=== PATIENT | female | born 1970 | race Caucasian/White ===

== ENCOUNTER → 2024-01-07 09:32 | Outpatient (BNVA) | payer MEDICAID, SELFPAY | PROVIDERS: Visit Provider Nurse Practitioner Family | DX: L74.511 Primary focal hyperhidrosis, face (principal); L74.519 Primary focal hyperhidrosis, unspecified; L74.510 Primary focal hyperhidrosis, axilla; L57.8 Other skin changes due to chronic exposure to nonionizing radiation; D22.39 Melanocytic nevi of other parts of face; L81.4 Other melanin hyperpigmentation | CPT/HCPCS: 99204 ==

== ENCOUNTER 2024-02-05 20:00 | Outpatient (CLI) | payer MEDICAID, SELFPAY | END 2024-02-05 20:01 | disposition home or self-care (01) | LOC: SLEEP 02-06 01:33 | PROVIDERS: Visit Provider Family Medicine | DX: G47.33 Obstructive sleep apnea (adult) (pediatric) (principal) | CPT/HCPCS: 95811 ==

== ENCOUNTER → 2024-02-20 09:21 | Outpatient (BNVA) | payer MEDICAID, SELFPAY | PROVIDERS: Visit Provider Nurse Practitioner Family | DX: L74.511 Primary focal hyperhidrosis, face (principal); L74.519 Primary focal hyperhidrosis, unspecified; L74.510 Primary focal hyperhidrosis, axilla; L57.8 Other skin changes due to chronic exposure to nonionizing radiation; D22.39 Melanocytic nevi of other parts of face; L81.4 Other melanin hyperpigmentation | CPT/HCPCS: 99214 ==

== ENCOUNTER 2024-03-03 14:30 | Oncology outpatient (recurring) (ONCR) | payer MEDICAID, SELFPAY ==
[2024-03-03 14:35] VITALS: BP 150/84; PULSE 90; RESP 16; TEMP 36.7; O2SAT 99
[2024-03-03] MEDS: eptinezumab-jjmr 300 MG in sodium chloride 0.9% (100 ml) 100 ML 206 MG IV (14:55)
[2024-03-03 15:25] VITALS: BP 136/65; PULSE 90; RESP 16; TEMP 36.7; O2SAT 96
== END 2024-03-17 23:59 | disposition home or self-care (01) ==
PROVIDERS: PCP Family Medicine; Visit Provider Internal Medicine Medical Oncology
DX: Z79.899 Other long term (current) drug therapy (principal); G43.709 Chronic migraine without aura, not intractable, without status migrainosus; Z53.9 Procedure and treatment not carried out, unspecified reason
CPT/HCPCS: 96413; A4222; J3032

== ENCOUNTER 2024-03-19 19:18 | Emergency (ER) | payer MEDICAID, SELFPAY ==
[2024-03-19 19:21] VITALS: BP 150/94; PULSE 112; RESP 16; TEMP 36.8; O2SAT 99; BMI 30.7
--- NOTE | 2024-03-19 19:30 | ED_ITS ---
HPI - Headache General: Chief Complaint: Headache Stated Complaint: Migraine Time Seen by Provider: 03/19/24 19:22 Source: patient Mode of arrival: ambulatory Limitations: no limitations History of Present Illness: Patient is a 54-year-old female presenting to the emergency department with mother and hide for the past 2 weeks. States she receives injections of sumatriptan and also receives Vyepti, states he is also currently in the process of switching neurologist. She does note that she seems to get worsening migraines after Vyepti infusion, states that she has been having symptoms for 2 weeks which include sensitivity to light and sound and nausea. States that her headache feels identical to previous migraines, just that this 1 has lasted longer. No neurological symptoms reported, no chest pain, no shortness of breath, no other symptoms MD elicited complaint: headache and migraine Pertinent past history: migraines Onset (ago): week(s) (2) Onset description: gradually Location: diffuse Severity: severe Exacerbating factors: light and noise Associated symptoms: Reports nausea; Deny chest pain, fever(s), lightheadedness, rash or vomiting Related Data Allergies Allergy/AdvReac Type Severity Reaction Status Date / Time citalopram [From Celexa] Allergy Severe ALGY-Hives Verified 03/19/24 19:24 galcanezumab-gnlm Allergy Severe ADR-Depress Verified 03/19/24 19:24 [From Emgality Pen] ion Review of Systems General: Reports: 10 or more systems reviewed and unremarkable except in HPI and below Const: Denies: fever(s), chills or fatigue Eyes: Denies: change in vision ENMT: Denies: throat pain, ear or mastoid pain or nasal discharge Card: Denies: chest pain, palpitations, swelling of feet/ankles or lightheadedness Resp: Denies: dyspnea, productive cough or wheezing GI: Reports: nausea; Denies: abdominal pain, vomiting, diarrhea or constipation : Denies: flank pain, difficulty voiding, dysuria or urinary frequency Musc: Denies: neck pain, back pain or joint pain Skin/Breast: Denies: rash Neuro: Reports: headache(s) and other (Sensitivity to light/sound); Denies: numbness in extremities or weakness in extremities PFSH ED PFSH: Social History Smoking and tobacco/nicotine status: current every day tobacco/nicotine user Physical Exam Const: COMMON NORMALS: no acute distress, patient oriented x3 and no limitations GENERAL APPEARANCE: cooperative and well developed ORIENTATION/CONSCIOUSNESS: Yes awake, Yes oriented to person, Yes oriented to place and Yes oriented to time OTHER: Patient requesting dark/quiet environment in the emergency room HENMT: COMMON NORMALS: normocephalic, atraumatic and hearing grossly normal bilaterally HEAD & SCALP: normocephalic and atraumatic Eye: COMMON NORMALS: Equal, round and reactive pupils present, EOMs intact bilaterally and conjunctivae normal CONJUNCTIVA: Yes conjunctivae normal PUPIL: Yes Equal, round and reactive pupils present Neck/C-Spine: COMMON NORMALS: full ROM, supple and no JVD Resp: COMMON NORMALS: normal respiratory effort, No retractions, No use of accessory muscles and clear to auscultation bilaterally AUSCULTATION: clear to auscultation bilaterally Cardio: COMMON NORMALS: no JVD, regular rate, regular rhythm, No clicks present (Cardio), No murmurs present (Cardio) and No rub (Cardio) RATE: regular rate RHYTHM: regular rhythm Extremity: COMMON NORMALS: normal to inspection, full ROM and capillary refill normal Neuro: COMMON NORMALS: patient oriented x3, CN's II-XII intact bilaterally, moves all extremities, no focal motor deficits and no sensory deficits noted SENSORIUM/ORIENTATION: Yes oriented to person, Yes oriented to place and Yes oriented to time Psych: COMMON NORMALS: mental status grossly normal and Normal thought process present THOUGHT PROCESS: Normal thought process present Skin: COMMON NORMALS: no rashes or lesions noted GENERAL SKIN EXAM: no rashes or lesions noted Course Vital Signs: Vital signs: Vital Signs Temperature 98.2 F 03/19/24 19:21 Pulse Rate 99 03/19/24 20:01 Respiratory Rate 16 03/19/24 20:01 Blood Pressure 128/89 03/19/24 20:01 Pulse Oximetry 98 03/19/24 20:01 MDM - Headache Medical Decision Making Patient presented with 2 weeks of migraine headache, 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 She has infusions of Vyepti every 90 days, also has sumatriptan shots that she states she takes as needed. She was given migraine cocktail here, upon recheck states that she was feeling better and that she feels like the edge has been taken off. She will be discharged home and encouraged to follow-up with neurologist. Reasons to return discussed. She agrees with discharge home at this time. No radiology studies performed this visit Discharge Plan Discharge Patient Disposition: Home Clinical Impression: Migraine Condition: Stable Discharge Orders: Discharge ED (Routine); Ordered 03/19/24 Ordered By: Bar Peck Referrals: Da Perez [Primary Care Provider] - Discharge Diet: Usual diet Discharge Activity: Increase activity as tolerated Patient Instructions: Migraine Headache (ED) Activity Restrictions/Additional Instructions: Plenty of fluids. Continue injections and infusions for prophylactic migraine treatment. Follow-up with neurologist. Return with any new or worsening. Coding Level of Care Code ED Dietetic Technician for Kami Snowden
[2024-03-19] MEDS: sodium chloride 0.9% 1,000 ML 999 ML IV (19:56)
[2024-03-19] MEDS: ketorolac 60 mg/2 mL INJ 30 MG IVP (19:57)
[2024-03-19] MEDS: ondansetron 2 mg/ML SDV 2 mL 4 MG IVP (19:57)
[2024-03-19] MEDS: dexamethasone 10 mg/mL INJ IVP (19:58)
[2024-03-19] MEDS: diphenhydrAMINE 50 mg/mL SDV 1mL IVP (19:59)
[2024-03-19 20:01] VITALS: BP 128/89; PULSE 99; RESP 16; O2SAT 98
[2024-03-19 21:13] VITALS: BP 136/74; PULSE 78; RESP 16; O2SAT 98
== END 2024-03-19 21:32 | disposition home or self-care (01) ==
PROVIDERS: Emergency Provider Physician Assistant; PCP Family Medicine
DX: G43.909 Migraine, unspecified, not intractable, without status migrainosus (principal); Z72.0 Tobacco use
CPT/HCPCS: 96374; 96375; 99284; J1100; J1200; J1885; J2405; J7030

== ENCOUNTER 2024-06-08 22:26 | Emergency (ER) | payer MEDICAID, SELFPAY ==
[2024-06-08 22:42] VITALS: BP 144/85; PULSE 94; RESP 16; TEMP 36.6; O2SAT 99
--- NOTE | 2024-06-08 23:21 | XRR_ITS ---
PROCEDURE INFORMATION: Exam: XR Abdomen Exam date and time: 06/08/2024 11:54 PM Age: 54 years old Clinical indication: Abdominal pain; Prior surgery; Surgery date: 6+ months; Surgery type: Appy; Patient HX: Abdomen pain; Known umbilical hernia scheduled for surgery in 1 mo TECHNIQUE: Imaging protocol: Radiologic exam of the abdomen. Views: Frontal supine view of the abdomen. 1 View. COMPARISON: No relevant prior studies available. FINDINGS: Gastrointestinal tract: Moderate stool is present within the ascending and transverse colon. Bones/joints: Unremarkable. XR/XR KUB portable [id number] IMPRESSION: There are no acute abdominal findings.
[2024-06-08 23:34] LABS: Basophils # 0.1 10^3/uL (0.0-0.1); Basophils % 0.7 %; Eosinophils # 0.3 10^3/uL (0.0-0.8); Eosinophils % 4.2 %; Hematocrit 42.6 % (36-47); Lymphocytes # 3.2 10^3/uL (0.8-4.8); Lymphocytes % 42.2 %; Mean Corpuscular HGB Conc 34.5 g/dL (30-55); Mean Corpuscular Hemoglobin 31.3 pg (27-33); Mean Corpuscular Volume 90.6 fl (85-98); Mean Platelet Volume 8.5 fL (7.4-10.4); Monocytes # 0.6 10^3/uL (0.2-0.9); Neutrophils # 3.34 10^3/uL (1.8-7.7); Neutrophils % 44.8 %; Nucleated Red Blood Cells % 0 %; Platelet Count 194 10^3/cmm (157-399); Red Cell Distribution Width 12.4 % (12.1-15.1); White Blood Count 7.46 10^3/uL (3.29-11.43)
[2024-06-08 23:46] VITALS: BP 154/108; PULSE 92; O2SAT 97
[2024-06-08 23:51] LABS: Bilirubin Urine Negative (Negative); Blood Urine Negative (Negative); Glucose Urine UA Negative (Normal); Ketones Urine Negative (Negative); Leukocyte Esterase Urine Negative (Negative); Nitrate Urine Negative (Negative); Protein Urine Negative (Negative); Specific Gravity, Urine 1.006 (1.005-1.030); Urine Appearance Clear (CLEAR); Urine Color Yellow (Yellow); Urobilinogen Urine 0.2 mg/dL (Negative)
[2024-06-08 23:55] LABS: Add Urine Microscopic? YES; Bacteria Urine None Seen /hpf; Hyaline Casts Urine 0-4 /lpf; RBC Urine 0-2 /hpf (0-2); Squamous Epithelial Cell Urine 0-5 /hpf (0-5); WBC Urine 0-5 /hpf (0-5)
[2024-06-08 23:56] LABS: Lactic Sepsis W/Reflex 1.1 mmol/L (0.5-2.2)
[2024-06-08 23:57] LABS: Alanine Aminotransferase 31 U/L (0-33); Albumin Level 4.2 g/dL (3.5-5.2); Alkaline Phosphatase 95 U/L (35-105); Anion Gap 14.9 (5-19); Aspartate Amino Transferase 30 U/L (0-32); Blood Urea Nitrogen 13 mg/dL (6-20); Calcium 9.3 mg/dL (8.5-10.5); Carbon Dioxide 27 mmol/L (22-29); Chloride 105 mmol/L (98-107); Creatinine Clr Calc Pharmacy 89.8252; Globulin 2.5 g/dL (1.3-4.6); Glomerular Filtration Rate 74.7 mL/min (90-130); Glucose 115 mg/dL (65-115); Lipase 27 U/L (13-60); Osmolality Calculated 297 mOsm/kg (285-295); Potassium 3.9 mmol/L (3.5-5.1); Sodium 143 mmol/L (136-145); Total Bilirubin 0.4 mg/dL (0.15-1.2); Total Protein 6.7 g/dL (6.6-8.7)
--- NOTE | 2024-06-09 00:59 | ED_ITS ---
HPI - Abdominal Pain 2 General: Chief Complaint: Abdominal Pain Stated Complaint: hernia and pain Time Seen by Provider: 06/08/24 22:48 History of Present Illness: 54-year-old female with a known history of periumbilical hernia. She has a surgery appointment on 07/02 for this. She says that pain intermittently worsens around her umbilicus, and has been worse for the past couple of days. For the past few hours, she has had a hard knot in the area, that was exceptionally painful. She has been taking meloxicam without improvement. On my interview, she says that she was pushing on the area, felt it go soft, and is now much more comfortable. She has not been vomiting. She has had no diarrhea or blood in the stool. She had an appendectomy years ago along with a D&C at some point. Related Data Previous Rx's Medication Instructions Recorded hydrocodone 5 mg-acetaminophen 325 1 tab PO Q8H PRN pain #9 tabs 06/09/24 mg tablet ondansetron 4 mg disintegrating 4 mg PO Q6H PRN nausea and 06/09/24 tablet vomiting #14 tabs Allergies Allergy/AdvReac Type Severity Reaction Status Date / Time citalopram [From Celexa] Allergy Severe ALGY-Hives Verified 06/08/24 22:46 galcanezumab-gnlm Allergy Severe ADR-Depress Verified 06/08/24 22:46 [From Emgality Pen] [facility] Social History Smoking and tobacco/nicotine status: current every day tobacco/nicotine user Physical Exam 2 Const: COMMON NORMALS: no acute distress GENERAL APPEARANCE: cooperative; not ill appearing and not frail appearing HENMT: COMMON NORMALS: normocephalic, atraumatic and Normal external nose present HEAD & SCALP: normocephalic and atraumatic FACE & SINUS: normal facial exam and face symmetric NOSE: Normal external nose present Eye: COMMON NORMALS: Equal, round and reactive pupils present and EOMs intact bilaterally PUPIL: Yes Equal, round and reactive pupils present Neck/C-Spine: GENERAL: Yes trachea midline Chest: CHEST: Yes Symmetrical chest wall rise Resp: COMMON NORMALS: normal respiratory effort, No retractions, No use of accessory muscles and clear to auscultation bilaterally AUSCULTATION: clear to auscultation bilaterally Cardio: COMMON NORMALS: regular rate and regular rhythm RATE: regular rate RHYTHM: regular rhythm GI: COMMON NORMALS: Normal to inspection, nondistended, normoactive bowel sounds present OTHER: Small defect in the umbilicus noted. It is soft. Reducible. Mildly tender. Extremity: COMMON NORMALS: no pedal edema Neuro: BLAS COMA SCALE: document GCS findings Blas coma scale eye opening: Spontaneous Blas coma scale verbal response: [place] coma scale motor response: [place] commands [place] coma scale total score: 15 S ENSORY EXAM: Yes extremities (intact) Psych: COMMON NORMALS: speech normal SPEECH: Yes normal speech Skin: COMMON NORMALS: no rashes or lesions noted GENERAL SKIN EXAM: no rashes or lesions noted Course 2 Vital Signs: Vital signs: Vital Signs Temperature 97.8 F 06/08/24 22:42 Pulse Rate 91 06/09/24 01:13 Respiratory Rate 16 06/09/24 01:13 Blood Pressure 149/91 06/09/24 01:13 Pulse Oximetry 99 06/09/24 01:13 Oxygen Delivery Me thod Room Air 06/08/24 22:42 MDM - Abdominal Pain Medical Decision Making Reduced periumbilical hernia. KUB shows no acute abdominal findings meaning no obstruction. Her white blood cell count is normal. Her lactic acid is normal. With near resolution of her symptoms, she will be allowed discharge. Pain medication and antiemetic for recurrent symptoms. The patient knows to return for worsening symptoms despite this or inability to reduce the hernia. She has surgery follow-up. Lab Data 06/08/24 23:25 06/08/24 23: Labs/Radiology: Radiology Impressions KUB X-Ray 06/08/24 23: IMPRESSION: There are no acute abdominal findings. Laboratory Results WBC 7.46 10^3/uL (3.29-11.43) 06/08/24 23: RBC 4.70 10^6/uL (3.85-5.65) 06/08/24 23:25 Hgb 14.70 g/dL (11.27-16.99) 06/08/24 23: Hct 42.6 % (36-47) 06/08/24 23: MCV 90.6 fl (85-98) 06/08/24 23:25 MCH 31.3 pg (27-33) 06/08/24 23: MCHC 34.5 g/dL (30-55) 06/08/24 23:25 RDW 12.4 % (12.1-15.1) 06/08/24 23:25 Plt Count 194 10^3/cmm (157-399) 06/08/24 23:25 MPV 8.5 fL (7.4-10.4) 06/08/24 23:25 Neut % (Auto) 44.8 % 06/08/24 23: Lymph % (Auto) 42.2 % 06/08/24 23:25 Kay % (Auto) 8.0 % 06/08/24 23: Eos % (Auto) 4.2 % 06/08/24 23: Baso % (Auto) 0.7 % 06/08/24: Neut # (Auto) 3.34 10^3/uL (1.8-7.7) 06/08/24 23: Lymph # (Auto) 3.2 10^3/uL (0.8-4.8) 06/08/24 23:25 Kay # (Auto) 0.6 10^3/uL (0.2-0.9) 06/08/24 23:25 Eos # (Auto) 0.3 10^3/uL (0.0-0.8) 06/08/24 23: Baso # (Auto) 0.1 10^3/uL (0.0-0.1) 06/08/24 23: Nucleated RBC % (auto) 0 % 06/08/24 23: Nucleated RBCs # 0.0 /100WBC 06/08/24 23:25 Sodium 143 mmol/L (136-145) 06/08/24 23:25 Potassium 3.9 mmol/L (3.5-5.1) 06/08/24 23:25 Chloride 105 mmol/L (98-107) 06/08/24 23:25 Carbon Dioxide 27 mmol/L (22-29) 06/08/24 23:25 Anion Gap 14.9 (5-19) 06/08/24 23:25 BUN 13 mg/dL (6-20) 06/08/24 23:25 Creatinine 0.8 mg/dL (0.5-0.9) 06/08/24 23:25 GFR Calculation 74.7 mL/min (90-130) L 06/08/24 23:25 Glucose 115 mg/dL (65-115) 06/08/24 23:25 Calculated Osmolality 297 mOsm/kg (285-295) H 06/08/24 23:25 Lactic Acid 1.1 mmol/L (0.5-2.2) 06/08/24 23:25 Calcium 9.3 mg/dL (8.5-10.5) 06/08/24 23:25 Total Bilirubin 0.4 mg/dL (0.15-1.2) 06/08/24 23:25 AST 30 U/L (0-32) 06/08/24 23:25 ALT 31 U/L (0-33) 06/08/24 23:25 Alkaline Phosphatase 95 U/L (35-105) 06/08/24 23:25 C-Reactive Protein 3.0 mg/L (0.0-4.9) 06/08/24 23:25 Total Protein 6.7 g/dL (6.6-8.7) 06/08/24 23:25 Albumin 4.2 g/dL (3.5-5.2) 06/08/24 23:25 Globulin 2.5 g/dL (1.3-4.6) 06/08/24 23:25 Lipase 27 U/L (13-60) 06/08/24 23:25 Urine Color Yellow (Yellow) 06/08/24 23:42 Urine Appearance Clear (CLEAR) 06/08/24 23:42 Urine pH 6.0 (5-7) 06/08/24 23:42 Ur Specific [place] 1.006 (1.005-1.030) 06/08/24 23:42 Urine Protein Negative (Negative) 06/08/24 23:42 Urine Glucose (UA) Negative (Normal) 06/08/24 23:42 Urine Ketones Negative (Negative) 06/08/24 23:42 Urine Blood Negative (Negative) 06/08/24 23:42 Urine Nitrate Negative (Negative) 06/08/24 23:42 Urine Bilirubin Negative (Negative) 06/08/24 23:42 Urine Urobilinogen 0.2 mg/dL (Negative) 06/08/24 23:42 Ur Leukocyte Esterase Negative (Negative) 06/08/24 23:42 Urine RBC 0-2 /hpf (0-2) 06/08/24 23:42 Urine WBC 0-5 /hpf (0-5) 06/08/24 23:42 Ur Squamous Epith Cells 0-5 /hpf (0-5) 06/08/24 23:42 Amorphous Sediment Not Reportable 06/08/24 23:42 Urine Bacteria None seen /hpf (NONE) 06/08/24 23:42 Hyaline Casts 0-4 /lpf H 06/08/24 23:42 All radiology interpretation(s) finalized by discharge Discharge Plan Discharge Patient Disposition: Home Clinical Impression: Periumbilical abdominal pain Condition: Stable Prescriptions: New hydrocodone-acetaminophen 5-325 mg tablet 1 tab PO Q8H PRN (Reason: pain) Qty: 9 0RF ondansetron 4 mg tablet,disintegrating 4 mg PO Q6H PRN (Reason: nausea and vomiting) Qty: 14 0RF Discharge Orders: Discharge ED (Routine); Ordered 06/09/24 Ordered By: Garcia Snell Referrals: Da Perez [Primary Care Provider] - 1-3 days Patient Instructions: Abdominal Pain (ED), Ventral Hernia (ED), Opioid Safety, Pain Management Activity Restrictions/Additional Instructions: Return for fever, worsening pain despite treatment, vomiting liquids or medications, other concerning symptoms. Follow-up with your surgeon. Coding Level of Care Code ED Darklight Inspector for Kami Snowden
[2024-06-09 01:13] VITALS: BP 149/91; PULSE 91; RESP 16; O2SAT 99
== END 2024-06-09 01:13 | disposition home or self-care (01) ==
PROVIDERS: Emergency Provider Emergency Medicine; PCP Family Medicine
DX: R10.33 Periumbilical pain (principal); Z72.0 Tobacco use
CPT/HCPCS: 36415; 74018; 80053; 81001; 83605; 83690; 85025; 86140; 99284

== ENCOUNTER 2024-09-04 13:16 | Outpatient (RCR) | payer MEDICAID, SELFPAY | END 2024-09-15 23:59 | disposition home or self-care (01) | LOC: SPT 13:16 | PROVIDERS: Visit Provider Family Medicine | DX: M54.2 Cervicalgia (principal); G89.29 Other chronic pain | CPT/HCPCS: 97161 ==

== ENCOUNTER 2024-11-13 07:07 | Outpatient (CLI) | payer MEDICAID, SELFPAY ==
--- NOTE | 2024-11-13 07:17 | CT_ITS ---
WS: [id number] LDCT LUNG CANCER SCREENING TECHNIQUE: Noncontrast CT of the chest with coronal and sagittal reformatted images. CLINICAL INFORMATION: TOBACCO USE COMPARISON: None. DLP: 69.30 mGy.cm DIvol: Mean CTDIvol: 1.50 (mGy) All CT scans at [facility] use at least one of these dose optimization techniques: automated exposure control; mA and/or kV adjustment per patient size (includes targeted exams where dose is matched to clinical indication); or iterative reconstruction. FINDINGS: Subsegmental atelectasis in the lung bases. 3 mm noncalcified nodule superior segment LEFT lower lobe near the fissure. 12 mm LEFT thyroid nodule. Aortic calcification. Coronary calcification. Appearance RIGHT subclavian artery. No mediastinal or hilar lymphadenopathy. No axillary lymphadenopathy. Adrenal glands are normal. Normal GE junction. Thoracic kyphosis. CT/CT lung screening [id number] IMPRESSION: LUNG-RADS: 2-Benign Appearance or Behavior FOLLOW UP: 12 Month: Continue annual screening with LDCT
== END 2024-11-13 07:08 | disposition home or self-care (01) ==
PROVIDERS: PCP Nurse Practitioner Family; Visit Provider Nurse Practitioner Family
DX: Z87.891 Personal history of nicotine dependence (principal)
CPT/HCPCS: 71271